=== PATIENT | female | born 1990 | race African-American/Black ===

== ENCOUNTER 2016-07-15 10:19 | Emergency (ER) | payer OTHER ==
[2016-07-15] MEDS ORDERED: Acetaminophen 500 MG TAB ONE (11:13)
== END 2016-07-15 11:22 | disposition home or self-care (01) ==
LOC: NAV ERS 10:19
DX: K08.89 Other specified disorders of teeth and supporting structures (principal); F31.9 Bipolar disorder, unspecified
CPT/HCPCS: 99282

== ENCOUNTER 2016-09-27 18:42 | Emergency (ER) | payer OTHER ==
[2016-09-27] MEDS ORDERED: Acetaminophen 500 MG TAB ONE (19:02)
[2016-09-27 19:25] LABS: Pregnancy Test - Urine (BHCG) NEGATIVE (NEGATIVE); Pregu Control Bar Appear? YES (CONTROL BAR); Specific Gravity 1.036 (1.002-1.036)
--- NOTE | 2016-09-27 21:33 | RAD ---
LUMBAR SPINE THREE VIEWS: History: 26-year-old female with back pain after slipping on a wet floor and falling backwards at 3:00 p.m. t isabel. FINDINGS: No evidence for acute fracture, dislocation, or malalignment. Disc spaces are adequately preserved. IMPRESSION: Unremarkable lumbar spine. POS: JAKE
== END 2016-09-27 19:50 | disposition home or self-care (01) ==
LOC: NAV ERS 18:42
DX: M54.5 Low back pain (principal); F31.9 Bipolar disorder, unspecified; W01.0XXA Fall on same level from slipping, tripping and stumbling without subsequent striking against object, initial encounter; Y92.512 Supermarket, store or market as the place of occurrence of the external cause
CPT/HCPCS: 72100; 81025

== ENCOUNTER 2016-10-30 04:28 | Emergency (ER) | payer OTHER ==
[2016-10-30] MEDS ORDERED: Ibuprofen 800 MG TAB ONE (04:51)
[2016-10-30] MEDS ORDERED: AMOXicillin 250 MG CAP ONE (04:51)
== END 2016-10-30 04:56 | disposition home or self-care (01) ==
LOC: NAV ERS 04:28
DX: K08.89 Other specified disorders of teeth and supporting structures (principal); I10 Essential (primary) hypertension; F31.9 Bipolar disorder, unspecified; Z79.899 Other long term (current) drug therapy
CPT/HCPCS: 99282

== ENCOUNTER 2016-12-13 23:48 | Emergency (ER) | payer OTHER ==
[2016-12-14] MEDS ORDERED: Azithromycin 250 MG TAB ONE (00:04)
== END 2016-12-14 00:10 | disposition home or self-care (01) ==
LOC: NAV ERS 23:48
DX: J06.9 Acute upper respiratory infection, unspecified (principal); I10 Essential (primary) hypertension; F31.9 Bipolar disorder, unspecified; Z79.899 Other long term (current) drug therapy
CPT/HCPCS: 99283

== ENCOUNTER 2017-03-12 14:36 | Emergency (ER) | payer OTHER, SELFPAY | END 2017-03-12 15:26 | disposition home or self-care (01) | LOC: NAV ERS 14:36 | DX: S16.1XXA Strain of muscle, fascia and tendon at neck level, initial encounter (principal); S39.012A Strain of muscle, fascia and tendon of lower back, initial encounter; I10 Essential (primary) hypertension; E66.9 Obesity, unspecified; F31.9 Bipolar disorder, unspecified; Z91.14 Patient's other noncompliance with medication regimen; Z79.899 Other long term (current) drug therapy; V43.62XA Car passenger injured in collision with other type car in traffic accident, initial encounter | CPT/HCPCS: 99283 ==

== ENCOUNTER 2017-06-09 14:42 | Emergency (ER) | payer MEDICAID, OTHER | END 2017-06-09 15:59 | disposition home or self-care (01) | LOC: NAV ERS 14:42 | DX: K04.7 Periapical abscess without sinus (principal); I10 Essential (primary) hypertension; F31.9 Bipolar disorder, unspecified; Z79.899 Other long term (current) drug therapy | CPT/HCPCS: 99282 ==

== ENCOUNTER 2017-08-17 20:34 | Emergency (ER) | payer OTHER | END 2017-08-17 20:58 | disposition home or self-care (01) | LOC: NAV ERS 20:34 | DX: S91.114A Laceration without foreign body of right lesser toe(s) without damage to nail, initial encounter (principal); I10 Essential (primary) hypertension; Z79.899 Other long term (current) drug therapy; W57.XXXA Bitten or stung by nonvenomous insect and other nonvenomous arthropods, initial encounter | CPT/HCPCS: 99283 ==

== ENCOUNTER 2018-12-29 21:27 | Emergency (ER) | payer OTHER ==
[~2018-12-29 21:27] MED LIST: Iopamidol 370 76% 100 ML VIAL ONE
[2018-12-29] MEDS ORDERED: Acetaminophen 325 MG TAB ONE (21:50)
[2018-12-29] MEDS ORDERED: Ondansetron PF 4 MG/2 ML Vial ONE (21:50)
[2018-12-29] MEDS ORDERED: Sodium Chloride 0.9% 1,000 ML ONE (21:50)
[2018-12-29 21:53] LABS: #Basophils 0.1 thou/uL (0.0-0.2); #Lymphocytes 1.2 thou/uL (1.20-3.40); #Monocytes 0.9 thou/uL (0.11-0.59); #Neutrophils 6.2 thou/uL (1.40-6.50); %Basophils 1.1 % (0.0-1.0); %Eosinophils 0.2 % (0.0-10.0); %Lymphocytes 14.1 % (21.0-51.0); %Monocytes 10.3 % (0.0-10.0); %Neutrophils 74.3 % (42.0-75.0); Hemoglobin 11.9 g/dL (12.0-16.0); Mean Corpuscular HGB CONC 32.2 g/dL (32.0-36.0); Mean Corpuscular Hemoglobin 26.9 pg (27.0-31.0); Mean Corpuscular Volume 83.7 fL (78.0-98.0); Mean Platelet Volume 6.9 fL (7.4-10.4); Platelet Count 299 thou/uL (130-400); RBC Distribution Width 11.9 % (11.5-14.5); Red Blood Cell (RBC) Count 4.43 mill/uL (4.20-5.40); White Blood Cell (WBC) Count 8.4 thou/uL (4.8-10.8)
[2018-12-29 22:01] LABS: Bilirubin Negative (Negative); Blood, Urine Trace (Negative); Clarity Clear (Clear); Glucose, Urine (Dipstick) Negative (Negative); Leukocyte Trace (Negative); Nitrite Negative (Negative); Protein, Urine (Dipstick) Trace mg/dL (Neg-Trace); Urobilinogen 0.2 mg/dL (Less than 2)
[2018-12-29 22:03] LABS: Pregnancy Test - Urine (BHCG) Negative (Negative); Pregu Control Background? CLEAR/WHITE (CLR/WHITE); Pregu Control Bar Appear? YES (CONTROL BAR)
[2018-12-29 22:05] LABS: Bacteria/HPF 1+ HPF (None Seen); RBC/HPF 0-3 HPF (0-3); WBC/HPF 0-3 HPF (0-3)
[2018-12-29 22:10] LABS: ALT (SGPT) 13 U/L (8-55); AST (SGOT) 16 U/L (5-34); Albumin 4.5 g/dL (3.5-5.0); Alkaline Phosphatase 72 U/L (40-150); Anion Gap 14 mmol/L (10-20); BUN (Urea Nitrogen) 12 mg/dL (7.0-18.7); Bilirubin, Total 0.6 mg/dL (0.2-1.2); Calc. Creatinine Clearance 0 mL/min (70-130); Calcium 9.6 mg/dL (7.8-10.44); Carbon Dioxide 23 mmol/L (22-29); Chloride 103 mmol/L (98-107); Estimated GFR-MDRD 79; Globulin 3.5 g/dL (2.4-3.5); Glucose 92 mg/dL (70-105); Lipase 25 U/L (8-78); Sodium 136 mmol/L (136-145)
--- NOTE | 2018-12-29 23:16 | CT ---
CT ABDOMEN AND PELVIS WITH IV CONTRAST 12/29/2018 CLINICAL INFORMATION: Abdominal pain localized to the right upper and right lower quadrants. COMPARISON: None. Technique: Multiple contiguous axial CT images are obtained through the abdomen and pelvis with IV contrast. Cor onal reformatted images are provided. FINDINGS: Lower Chest: Patchy parenchymal opacities are seen in the anterior aspect of the left lower lobe worr isome for pneumonia. The right lung base is clear. Vessels: The abdominal aorta and iliac arteries are normal in caliber. Abdomen: Portal vein:Patent Gallbladder: Decompressed but within normal limits for CT imaging. Liver: Subcentimeter hypodense lesion within the posterior aspect posterior segment right hepatic lob e which is difficult to further characterize on this exam. Spleen: within normal limits. Pancreas: within normal limits. Adrenals: There is a small 1.4 cm nodule within the left adrenal gland which cannot be further charac terized on this nonenhanced CT exam. The right adrenal gland has a normal CT appearance. Kidneys: within normal limits. Bowel: Normal caliber. Appendix: The appendix is visualized and normal in caliber. Peritoneum: Small amount of free fluid is seen in the right pelvis. Mesentery and Retroperitoneum: No enlarged mesenteric or retroperitoneal lymph nodes. Abdominal Wall: within normal limits. Pelvis: Reproductive Organs: There is an irregular 0.6 cm hypodense lesion with enhancing wall seen in the ri ght adnexal region probably related to involuting cyst or follicle. Small amount of free fluid is seen in the right adnexal region. The uterus and left adnexal structures have a normal CT appearance. Pelvis within normal limits. Bladder: within normal limits. Bones: within normal limits. IMPRESSION: 1.Left lower lobe pneumonia. Follow-up to complete resolution is recommended. 2. Small left adrenal nodule. This cannot be characterized on this post enhanced CT scan exam. Follow -up CT abdomen without IV contrast is recommended for further evaluation. 3. Irregular hypodense structure with enhancing wall in the right adnexal region which may represent an involuting cyst or follicle. Small amount of free fluid is seen adjacent this region, and rupture of an ovarian cyst cannot be entirely excluded. 4. Subcentimeter too small to characterize hypodense lesion posterior segment right hepatic lobe. Thi s does not have characteristics consistent with a cyst based on this exam, but this is small in size. Small adenoma or hemangioma is a possibility. Follow-up evaluation in 6 months is recommended. 5. No CT evidence of appendicitis. 6. No hydronephrosis or hydroureter.
[2018-12-29] MEDS ORDERED: Azithromycin 250 MG TAB ONE (23:26)
--- NOTE | 2018-12-30 00:38 | RAD ---
EXAM: CHEST ONE VIEW HISTORY: Fever. Left lower lobe pneumonia. COMPARISON: None FINDINGS: The cardiac silhouette and pulmonary vasculature is within normal limits. The lungs are clear. The os seous structures are intact. IMPRESSION: No acute cardiopulmonary process.
== END 2018-12-30 00:02 | disposition home or self-care (01) ==
LOC: NAV ERS 21:27
DX: J18.1 Lobar pneumonia, unspecified organism (principal); R10.32 Left lower quadrant pain; I10 Essential (primary) hypertension; F31.9 Bipolar disorder, unspecified; Z79.899 Other long term (current) drug therapy
CPT/HCPCS: 71045; 74177; 80053; 81003; 81015; 81025; 83605; 83690; 85025; 87804; 94760; 96361; 96374; J2405; J7050; Q9967

== ENCOUNTER 2019-10-03 10:16 | Emergency (ER) | payer MEDICAID, OTHER, SELFPAY ==
[2019-10-03 10:39] LABS: Bilirubin Negative (Negative); Blood, Urine Negative (Negative); Clarity Slightly Cloudy (Clear); Glucose, Urine (Dipstick) Negative (Negative); Leukocyte Trace (Negative); Nitrite Negative (Negative); Protein, Urine (Dipstick) Negative (Neg-Trace); Urobilinogen 0.2 mg/dL (Less than 2)
[2019-10-03 10:43] LABS: Pregnancy Test - Urine (BHCG) Negative (Negative); Pregu Control Background? CLEAR/WHITE (CLR/WHITE); Pregu Control Bar Appear? YES (CONTROL BAR); Specific Gravity 1.025 (1.002-1.036)
[2019-10-03] MEDS ORDERED: Ketorolac Tromethamine 30 MG/ML VIAL ONE (10:44)
[2019-10-03] MEDS ORDERED: Ondansetron PF 4 MG/2 ML Vial ONE (10:44)
[2019-10-03 10:51] LABS: Bacteria/HPF Rare-Few HPF (None Seen); RBC/HPF None Seen HPF (0-3); WBC/HPF 0-3 HPF (0-3)
[2019-10-03 11:27] LABS: #Basophils 0.1 thou/uL (0.0-0.2); #Lymphocytes 1.4 thou/uL (1.20-3.40); #Monocytes 0.4 thou/uL (0.11-0.59); #Neutrophils 3.5 thou/uL (1.40-6.50); %Basophils 1.3 % (0.0-1.0); %Eosinophils 0.6 % (0.0-10.0); %Lymphocytes 26.5 % (21.0-51.0); %Monocytes 6.8 % (0.0-10.0); %Neutrophils 64.8 % (42.0-75.0); Hemoglobin 12.3 g/dL (12.0-16.0); Mean Corpuscular HGB CONC 30.8 g/dL (32.0-36.0); Mean Corpuscular Hemoglobin 26.8 pg (27.0-31.0); Platelet Count 314 thou/uL (130-400); Red Blood Cell (RBC) Count 4.59 mill/uL (4.20-5.40); White Blood Cell (WBC) Count 5.4 thou/uL (4.8-10.8)
[2019-10-03 11:42] LABS: ALT (SGPT) 16 U/L (8-55); AST (SGOT) 16 U/L (5-34); Albumin 4.2 g/dL (3.5-5.0); Alkaline Phosphatase 94 U/L (40-110); Anion Gap 13 mmol/L (10-20); BUN (Urea Nitrogen) 11 mg/dL (7.0-18.7); Bilirubin, Total 0.2 mg/dL (0.2-1.2); Calc. Creatinine Clearance 0 mL/min (70-130); Calcium 9.1 mg/dL (7.8-10.44); Carbon Dioxide 22 mmol/L (22-29); Chloride 105 mmol/L (98-107); Estimated GFR-MDRD Greater than 90; Globulin 3.5 g/dL (2.4-3.5); Glucose 102 mg/dL (70-105); Lipase 33 U/L (8-78); Potassium 4.2 mmol/L (3.5-5.1); Protein, Total 7.7 g/dL (6.0-8.3); Sodium 136 mmol/L (136-145)
== END 2019-10-03 12:26 | disposition short-term general hospital (02) ==
LOC: NAV ERS 10:16
DX: R10.811 Right upper quadrant abdominal tenderness (principal); R11.2 Nausea with vomiting, unspecified; F31.9 Bipolar disorder, unspecified; I10 Essential (primary) hypertension; Z79.899 Other long term (current) drug therapy
CPT/HCPCS: 80053; 81003; 81015; 81025; 83690; 85025; 96361; 96374; 96375; J1885; J2405

== ENCOUNTER 2020-02-03 00:20 | Emergency (ER) | payer MEDICAID ==
[2020-02-03] MEDS ORDERED: hydrALAZINE 20 MG/ML VIAL ONE (01:13)
[2020-02-03] MEDS ORDERED: diphenhydrAMINE 50 MG/ML VIAL ONE (01:13)
[2020-02-03] MEDS ORDERED: Prochlorperazine 10 MG/2 ML VIAL ONE (01:13)
[2020-02-03] MEDS ORDERED: cloNIDine 0.1 MG TAB ONE (01:43)
== END 2020-02-03 02:36 | disposition home or self-care (01) ==
LOC: NAV ERS 00:20
DX: I10 Essential (primary) hypertension (principal); F31.9 Bipolar disorder, unspecified; Z79.899 Other long term (current) drug therapy
CPT/HCPCS: 99284; J0360; J0780; J1200

== ENCOUNTER 2020-05-02 13:24 | Emergency (ER) | payer BC, MEDICAID ==
--- NOTE | 2020-05-02 15:32 | RAD ---
XR Foot Rt 3 View STANDARD INDICATION: Slipped with right foot injury COMPARISON: None. FINDINGS: Bones: No acute fracture identified. Joints: Joints spaces appear preserved. Lisfranc alignment: Lisfranc alignment appears within normal limits. Soft tissues: No soft tissue injury demonstrated. No radiographic foreign body demonstrated. IMPRESSION: No acute osseous abnormality.
== END 2020-05-02 15:13 | disposition home or self-care (01) ==
LOC: NAV ERS 13:24
DX: M79.671 Pain in right foot (principal); I10 Essential (primary) hypertension; F31.9 Bipolar disorder, unspecified; Z79.899 Other long term (current) drug therapy; W01.0XXA Fall on same level from slipping, tripping and stumbling without subsequent striking against object, initial encounter

== ENCOUNTER 2020-05-07 12:13 | Emergency (ER) | payer BC ==
[2020-05-07] MEDS ORDERED: Lidocaine 1% (PF) 30 ML VIAL ONE (12:40)
== END 2020-05-07 13:22 | disposition home or self-care (01) ==
LOC: NAV ERS 12:13
DX: S61.512A Laceration without foreign body of left wrist, initial encounter (principal); I10 Essential (primary) hypertension; F31.9 Bipolar disorder, unspecified; Z79.899 Other long term (current) drug therapy; W45.8XXA Other foreign body or object entering through skin, initial encounter
CPT/HCPCS: 12002; J2001